=== PATIENT | female | born 1985 | race Caucasian/White ===

== ENCOUNTER 2016-06-29 15:04 | Emergency (ER) | payer OTHER ==
[~2016-06-29] VITALS: Ht 180.3 cm; Wt 152.4 kg
[2016-06-29 16:06] LABS: HEMATOCRIT 43.5 % (36.0-46.0); MCH 26.4 PG (29.0-34.0); MCHC 31.7 G/DL (30.0-36.0); MCV 83.3 FL (83-99); MEAN PLAT.VOLUME 9.7 uM^3 (9.5-12.4); PLATELET COUNT 447 K/uL (156-360); RBC DIS.WIDTH-CV 13.4 % (11.8-14.6); RBC DIS.WIDTH-SD 41.1 % (39-53); RED BLOOD COUNT 5.22 M/uL (3.80-5.20); WHITE BLOOD COUNT 15.4 K/uL (4.1-10.2)
[2016-06-29 16:19] LABS: CHLORIDE 103 mEq/L (99-109); POTASSIUM 4.2 mEq/L (3.7-5.4); SODIUM 140 mEq/L (136-147)
[2016-06-29 16:21] LABS: GLUCOSE 110 mg/dL (70-99)
[2016-06-29 16:22] LABS: ANION GAP 10 MEQ/L (2-14)
[2016-06-29 16:24] LABS: ALKALINE PHOSPHATASE 82 IU/L (3-129)
[2016-06-29 16:25] LABS: GFR ESTIMATE (CALCULATED) > 59 mL/min/
[2016-06-29 16:26] LABS: UREA NITROGEN (BUN) 10 mg/dL (9-23)
[2016-06-29 16:28] LABS: LIPASE 17 U/L (1.0-51.0)
[2016-06-29 16:28] LABS: ADD MIUA? YES; BILIRUBIN SMALL; BLOOD NEGATIVE; COLOR AMBER ((YELLOW)); GLUCOSE (STRIP) NEGATIVE; KETONES 5; LEUKOCYTES TRACE; NITRITE NEGATIVE; PROTEIN (STRIP) 100; SPECIFIC GRAVITY 1.028 (1.000-1.030)
[2016-06-29 16:35] LABS: QUANTITATIVE HCG < 4.0 MIU/ML
[2016-06-29 16:45] LABS: TOTAL BILIRUBIN 0.3 mg/dL (0.0-1.0)
[2016-06-29 16:47] LABS: BACTERIA 2+ /HPF; EPITHELIAL CELLS 4+ /HPF; MUCUS NONE SEEN /LPF; RED BLOOD CELLS 0-5 /HPF (0-5)
[2016-06-29] MEDS ORDERED: PERCOCET 5/31 TABLET PO (17:36)
[2016-06-29] MEDS ORDERED: ZOFRAN ODT4 MG PO (17:36)
[2016-06-29] MEDS ORDERED: CIPRO500 MG PO (17:37)
[2016-06-29 18:40] VITALS: BP 149/93
== END 2016-06-29 18:41 | disposition home or self-care (01) ==
LOC: EME 15:04
PROVIDERS: Nurse Practitioner Family
DX: N83.202 Unspecified ovarian cyst, left side (principal); N39.0 Urinary tract infection, site not specified; Z98.890 Other specified postprocedural states; Z85.830 Personal history of malignant neoplasm of bone
CPT/HCPCS: 74177; 80053; 81003; 83690; 84702; 85027; 99281; 99284; J2270; J2405; J7030

== ENCOUNTER 2016-07-31 06:47 | Day surgery (SDC) | payer OTHER ==
[~2016-07-31] VITALS: Ht 180.3 cm; Wt 150.0 kg
[~2016-07-31 06:47] MED LIST: BLISOVI FE 1.51 EACH PO; CIPRO500 MG PO; CYCLOBENZAPRINE5 MG PO; DILAUDID2 MG PO; ESCITALOPRAM OX10 MG PO; MELOXICAM7.5 MG PO; MIRALAX17 GM PO; PERCOCET 5/31 TABLET PO; TYLENOL REGULA325 MG PO; ZOFRAN ODT4 MG PO
== END 2016-07-31 09:20 | disposition home or self-care (01) ==
LOC: CATH 06:47
DX: I87.8 Other specified disorders of veins (principal); C76.42 Malignant neoplasm of left upper limb; Z82.49 Family history of ischemic heart disease and other diseases of the circulatory system
CPT/HCPCS: C1751; C1894; J0690; J1200; J1644; J2250; J3010; S0020

== ENCOUNTER → 2016-10-17 | Outpatient (CLI) | payer OTHER ==
[~2016-10-17] MED LIST changes: +FENTANYL1 EAC4 TD; +OXAYDO5 MG PO
== END | disposition home or self-care (01) ==
LOC: EKG 12:47
DX: C80.1 Malignant (primary) neoplasm, unspecified (principal)
CPT/HCPCS: 93306

== ENCOUNTER 2016-12-06 17:27 | Inpatient (IN) | payer OTHER ==
[~2016-12-06] VITALS: Ht 180.3 cm; Wt 143.5 kg
[2016-12-06 18:13] LABS: HEMATOCRIT 36.4 % (36.0-46.0); MCH 26.7 PG (29.0-34.0); MCHC 30.8 G/DL (30.0-36.0); MCV 86.9 FL (83-99); MEAN PLAT.VOLUME 9.1 uM^3 (9.5-12.4); NRBC (%) 0.2 /100 WBC (0-0); RBC DIS.WIDTH-CV 21.2 % (11.8-14.6); RBC DIS.WIDTH-SD 66.9 % (39-53); RED BLOOD COUNT 4.19 M/uL (3.80-5.20); WHITE BLOOD COUNT 8.9 K/uL (4.1-10.2)
[2016-12-06 18:15] LABS: EOSINOPHIL (%) 1.7 % (0-5); EOSINOPHIL COUNT 0.2 K/uL (0-0.3); IMMATURE GRANULOCYTE COUNT 0.1 K/uL; INSTRUMENT ABS NEUTROPHIL CT 7.3 K/uL; LYMPHOCYTE COUNT 0.6 K/uL (1.0-2.8); MONOCYTE (%) 8.4 % (3-12); MONOCYTE COUNT 0.8 K/uL (0-0.8); NEUTROPHIL (%) 82.6 % (45-76); NEUTROPHIL COUNT 7.3 K/uL (1.8-6.4)
[2016-12-06 18:32] LABS: CHLORIDE 105 mEq/L (99-109); POTASSIUM 3.8 mEq/L (3.7-5.4); SODIUM 141 mEq/L (136-147)
[2016-12-06 18:33] LABS: GLUCOSE 116 mg/dL (70-99)
[2016-12-06 18:35] LABS: ANION GAP 11 MEQ/L (2-14)
[2016-12-06 18:37] LABS: GFR ESTIMATE (CALCULATED) > 59 mL/min/
[2016-12-06 18:38] LABS: INTER. NORMALIZED RATIO 1.6; UREA NITROGEN (BUN) 6 mg/dL (9-23)
[2016-12-06 18:40] LABS: PTT 26.6 SEC (25-37)
[2016-12-06 18:46] LABS: PLATELET COUNT 86 K/uL (156-360)
[2016-12-06 18:55] LABS: ANISOCYTOSIS 2+; MACROCYTES 1+; MICROCYTOSIS 1+; PLAT.SUFFICIENCY DECREASED; POLYCHROMASIA 1+; SPHEROCYTES 1+
[2016-12-06] MEDS ORDERED: ESCITALOPRAM OX20 MG PO (20:25)
[2016-12-06] MEDS ORDERED: EXTRA STRENGTH500 M1 PO (20:29)
[2016-12-06] MEDS ORDERED: FENTANYL1 EAC1 TD (20:31)
[2016-12-06] MEDS ORDERED: CAPECITABINE500 MG PO (20:32)
[2016-12-06] MEDS ORDERED: NYSTOP60 GM TP (20:35)
[2016-12-06] MEDS ORDERED: LORAZEPAM0.5 MG PO (20:38)
[2016-12-06] MEDS ORDERED: XARELTO20 MG PO (20:39)
[2016-12-06] MEDS ORDERED: MIRALAX255 GM PO (20:41)
[2016-12-06] MEDS ORDERED: COMPAZINE10 MG PO (20:42)
[2016-12-06] MEDS ORDERED: ANTIFUNGAL15 G1 TP (20:45)
[2016-12-06] MEDS ORDERED: XGEVA120 MG/1.7 SC (20:49)
[2016-12-06 22:04] VITALS: BP 168/91
[2016-12-07 00:06] VITALS: BP 126/78
[2016-12-07 06:04] LABS: EOSINOPHIL (%) 1.8 % (0-5); EOSINOPHIL COUNT 0.2 K/uL (0-0.3); HEMATOCRIT 34.9 % (36.0-46.0); IMMATURE GRANULOCYTE (%) 1.3 % (0.0-0.7); IMMATURE GRANULOCYTE COUNT 0.1 K/uL; INSTRUMENT ABS NEUTROPHIL CT 7.5 K/uL; LYMPHOCYTE COUNT 0.6 K/uL (1.0-2.8); MCH 27.8 PG (29.0-34.0); MCHC 31.8 G/DL (30.0-36.0); MCV 87.3 FL (83-99); MEAN PLAT.VOLUME 10.4 uM^3 (9.5-12.4); MONOCYTE (%) 7.7 % (3-12); MONOCYTE COUNT 0.7 K/uL (0-0.8); NEUTROPHIL (%) 82.9 % (45-76); NEUTROPHIL COUNT 7.5 K/uL (1.8-6.4); PLATELET COUNT 90 K/uL (156-360); RBC DIS.WIDTH-CV 21.2 % (11.8-14.6); RBC DIS.WIDTH-SD 67.3 % (39-53); WHITE BLOOD COUNT 9.1 K/uL (4.1-10.2)
[2016-12-07 06:25] LABS: ANION GAP 8 MEQ/L (2-14); CHLORIDE 105 MEQ/L (99-109); GFR ESTIMATE (CALCULATED) > 59 mL/min/; GLUCOSE 112 mg/dL (70-99); POTASSIUM 3.8 MEQ/L (3.7-5.4); SAMPLE HEMOLYSIS CHECK 0; SAMPLE ICTERIC CHECK 0; SAMPLE LIPEMIA CHECK 0; SODIUM 140 MEQ/L (136-147); UREA NITROGEN (BUN) 5 mg/dL (9-23)
[2016-12-07 07:20] VITALS: BP 129/89
[2016-12-07 14:40] LABS: ADD MIUA? YES; BILIRUBIN NEGATIVE; BLOOD MODERATE; COLOR YELLOW ((YELLOW)); GLUCOSE (STRIP) NEGATIVE; KETONES NEGATIVE; LEUKOCYTES TRACE; NITRITE NEGATIVE; PROTEIN (STRIP) NEGATIVE; SPECIFIC GRAVITY 1.009 (1.000-1.030); UROBILINOGEN 0.2 MG/DL (0.2-1.0)
[2016-12-07 14:49] LABS: BACTERIA NONE SEEN /HPF; EPITHELIAL CELLS RARE /HPF; MUCUS TRACE /LPF; RED BLOOD CELLS 0-5 /HPF (0-5); UCUL ADDED? YES
[2016-12-07 15:29] VITALS: BP 135/90
[2016-12-07 21:20] LABS: POINT-OF-CARE METER ID UU14188625
[2016-12-07 23:28] VITALS: BP 125/80
[2016-12-08 07:46] VITALS: BP 124/83
[2016-12-08 12:20] LABS: HDL CHOLESTEROL 35 MG/DL (Desirable>=50); LDL CHOLESTEROL 161 mg/dL (Desirable<100); NON-HDL CHOLESTEROL 190 mg/dL (Desirable<160); TOTAL CHOLESTEROL 225 mg/dL (Desirable<200); TRIGLYCERIDES 146 MG/DL (Normal: <150)
[2016-12-08 16:35] VITALS: BP 122/80
[2016-12-08 20:54] LABS: POINT-OF-CARE METER ID UU13113717
[2016-12-08 23:32] VITALS: BP 144/83
[2016-12-09 00:08] LABS: PTT 26.3 SEC (25-37)
[2016-12-09 00:38] LABS: INTER. NORMALIZED RATIO 1.4; PROTHROMBIN TIME 15.1 SEC (10.2-12.9)
[2016-12-09 06:07] LABS: EOSINOPHIL (%) 0 % (0-5); HEMATOCRIT 34.9 % (36.0-46.0); IMMATURE GRANULOCYTE (%) 2.8 % (0.0-0.7); IMMATURE GRANULOCYTE COUNT 0.4 K/uL; INSTRUMENT ABS NEUTROPHIL CT 12.4 K/uL; LYMPHOCYTE COUNT 0.6 K/uL (1.0-2.8); MCH 27.2 PG (29.0-34.0); MCHC 31.5 G/DL (30.0-36.0); MCV 86.4 FL (83-99); MONOCYTE (%) 3.9 % (3-12); MONOCYTE COUNT 0.5 K/uL (0-0.8); NEUTROPHIL (%) 88.6 % (45-76); NEUTROPHIL COUNT 12.4 K/uL (1.8-6.4); PLATELET COUNT 103 K/uL (156-360); RBC DIS.WIDTH-CV 20.9 % (11.8-14.6); RBC DIS.WIDTH-SD 65.4 % (39-53); RED BLOOD COUNT 4.04 M/uL (3.80-5.20)
[2016-12-09 06:51] LABS: POINT-OF-CARE METER ID UU14174225
[2016-12-09 07:14] VITALS: BP 137/95
[2016-12-09 11:19] LABS: POINT-OF-CARE METER ID UU14174225
[2016-12-09 14:27] LABS: Estimated Average Glucose 91 mg/dL (70-123); HEMOGLOBIN A1c (GLYCOHEMOGLOB) 4.8 % HGB (Below 5.7)
[2016-12-09 15:11] VITALS: BP 152/83
[2016-12-09 16:46] LABS: POINT-OF-CARE METER ID UU13113717
[2016-12-09 19:42] VITALS: BP 173/83
[2016-12-09 21:25] LABS: POINT-OF-CARE METER ID UU13113717
[2016-12-10 00:10] VITALS: BP 144/87
[2016-12-10 03:47] VITALS: BP 181/92
[2016-12-10 06:25] LABS: INTER. NORMALIZED RATIO 1.2; PROTHROMBIN TIME 13.7 SEC (10.2-12.9)
[2016-12-10 07:12] VITALS: BP 126/78
[2016-12-10 07:12] LABS: POINT-OF-CARE METER ID UU14188625
[2016-12-10 11:19] LABS: POINT-OF-CARE METER ID UU14174225
[2016-12-10] MEDS ORDERED: CAPECITABINE500 MG PO (11:34)
[2016-12-10] MEDS ORDERED: LOVENOX150 MG/1 M SC (11:38)
[2016-12-10] MEDS ORDERED: PRAVASTATIN SOD80 MG PO (11:38)
[2016-12-10] MEDS ORDERED: DECADRON4 MG PO (11:40)
[2016-12-11 05:01] LABS: DRVVT Mixing Study Interp Not Indicated (()); dRVVT Screen 45 sec (<=45)
[2016-12-11 05:32] LABS: ADD PTT REFLEX? Y; PTT-LA 50 sec (<=40); PTT-LA Reflex Has been added (())
== END 2016-12-10 13:58 | disposition home or self-care (01) | DRG 65 ==
LOC: EME 17:27 → 5SOUTH 19:37 → EDOF 19:37 → ENRESERV 19:40 → 5SOUTH 21:46
PROVIDERS: Emergency Medicine; Family Medicine; Hospitalist; Internal Medicine; Internal Medicine Medical Oncology
DX: I63.443 Cerebral infarction due to embolism of bilateral cerebellar arteries (principal); C79.31 Secondary malignant neoplasm of brain; C79.51 Secondary malignant neoplasm of bone; C78.7 Secondary malignant neoplasm of liver and intrahepatic bile duct; C78.01 Secondary malignant neoplasm of right lung; C78.1 Secondary malignant neoplasm of mediastinum; F05 Delirium due to known physiological condition; Z68.41 Body mass index [BMI] 40.0-44.9, adult; M84.40XA Pathological fracture, unspecified site, initial encounter for fracture; C80.1 Malignant (primary) neoplasm, unspecified; R47.01 Aphasia; D69.59 Other secondary thrombocytopenia; T45.1X5A Adverse effect of antineoplastic and immunosuppressive drugs, initial encounter; D64.81 Anemia due to antineoplastic chemotherapy; K59.00 Constipation, unspecified; G13.1 Other systemic atrophy primarily affecting central nervous system in neoplastic disease; E66.3 Overweight; E78.5 Hyperlipidemia, unspecified; G89.3 Neoplasm related pain (acute) (chronic); Z86.718 Personal history of other venous thrombosis and embolism; Z92.3 Personal history of irradiation; Z79.01 Long term (current) use of anticoagulants; Z80.0 Family history of malignant neoplasm of digestive organs; Z80.7 Family history of other malignant neoplasms of lymphoid, hematopoietic and related tissues
CPT/HCPCS: 70450; 70553; 77336; 77412; 80048; 80061; 81003; 82948; 83036; 85025; 85597 90; 85610; 85613 90; 85730; 85730 90; 86147 90; 87040; 87086; 93005; 93306; 93880; 99281; 99285; G0480; J1100; J1650; J8521

== ENCOUNTER 2016-12-26 13:57 | Inpatient (IN) | payer OTHER ==
[~2016-12-26] VITALS: Ht 180.3 cm; Wt 135.9 kg
[~2016-12-26 13:57] MED LIST changes: +ANTIFUNGAL15 G1 TP; +ATIVAN1 MG PO; +CAPECITABINE500 MG PO; +COMPAZINE10 MG PO; +DECADRON4 MG PO; +ESCITALOPRAM OX20 MG PO; +EXTRA STRENGTH500 M1 PO; +FENTANYL1 EAC1 TD; +LOVENOX150 MG/1 M SC; +MIRALAX255 GM PO; +NYSTOP60 GM TP; -OXAYDO5 MG PO; +OXYCODONE HCL10 MG PO; +PRAVASTATIN SOD80 MG PO; +XARELTO20 MG PO; +XGEVA120 MG/1.7 SC
[2016-12-26 15:10] LABS: EOSINOPHIL (%) 0.3 % (0-5); EOSINOPHIL COUNT 0.1 K/uL (0-0.3); HEMATOCRIT 31.7 % (36.0-46.0); IMMATURE GRANULOCYTE (%) 4.6 % (0.0-0.7); IMMATURE GRANULOCYTE COUNT 1.1 K/uL; INSTRUMENT ABS NEUTROPHIL CT 21.1 K/uL; LYMPHOCYTE COUNT 0.7 K/uL (1.0-2.8); MCH 28.6 PG (29.0-34.0); MCHC 33.4 G/DL (30.0-36.0); MCV 85.4 FL (83-99); MONOCYTE (%) 5.3 % (3-12); MONOCYTE COUNT 1.3 K/uL (0-0.8); NEUTROPHIL COUNT 21.1 K/uL (1.8-6.4); NRBC (%) 0.2 /100 WBC (0-0); RBC DIS.WIDTH-CV 21.3 % (11.8-14.6); RED BLOOD COUNT 3.71 M/uL (3.80-5.20); WHITE BLOOD COUNT 24.3 K/uL (4.1-10.2)
[2016-12-26 15:12] LABS: PLATELET COUNT 162 K/uL (156-360)
[2016-12-26 15:23] LABS: CHLORIDE 101 mEq/L (99-109); POTASSIUM 4.6 mEq/L (3.7-5.4); SODIUM 134 mEq/L (136-147)
[2016-12-26 15:26] LABS: GLUCOSE 119 mg/dL (70-99)
[2016-12-26 15:27] LABS: ANION GAP 14 MEQ/L (2-14); TOTAL BILIRUBIN 0.7 mg/dL (0.0-1.0)
[2016-12-26 15:29] LABS: ALKALINE PHOSPHATASE 142 IU/L (3-129); GFR ESTIMATE (CALCULATED) > 59 mL/min/
[2016-12-26 15:30] LABS: UREA NITROGEN (BUN) 17 mg/dL (9-23)
[2016-12-26] MEDS ORDERED: XELODA500 MG PO (20:03)
[2016-12-26] MEDS ORDERED: DECADRON4 MG PO (20:05)
[2016-12-26] MEDS ORDERED: ZOFRAN8 MG PO (20:06)
[2016-12-27 01:23] VITALS: BP 116/76
[2016-12-27 06:20] LABS: HEMATOCRIT 28.1 % (36.0-46.0); MCH 28.2 PG (29.0-34.0); MCHC 32.4 G/DL (30.0-36.0); MEAN PLAT.VOLUME 9.6 uM^3 (9.5-12.4); NRBC (%) 0.4 /100 WBC (0-0); PLATELET COUNT 150 K/uL (156-360); RBC DIS.WIDTH-CV 21.7 % (11.8-14.6); RBC DIS.WIDTH-SD 68.5 % (39-53); RED BLOOD COUNT 3.23 M/uL (3.80-5.20); WHITE BLOOD COUNT 20.3 K/uL (4.1-10.2)
[2016-12-27 06:40] LABS: ANION GAP 11 MEQ/L (2-14); CHLORIDE 100 MEQ/L (99-109); GFR ESTIMATE (CALCULATED) > 59 mL/min/; SAMPLE HEMOLYSIS CHECK 0; SAMPLE ICTERIC CHECK 0; SAMPLE LIPEMIA CHECK 0; SODIUM 136 MEQ/L (136-147); UREA NITROGEN (BUN) 13 mg/dL (9-23)
[2016-12-27 06:43] LABS: GLUCOSE 190 mg/dL (70-99); POTASSIUM 3.5 MEQ/L (3.7-5.4)
[2016-12-27 07:20] VITALS: BP 127/78
[2016-12-27 11:50] VITALS: BP 125/74
[2016-12-27 14:55] VITALS: BP 133/73
[2016-12-27 17:39] LABS: ADD MIUA? YES; BILIRUBIN NEGATIVE; BLOOD NEGATIVE; COLOR YELLOW ((YELLOW)); GLUCOSE (STRIP) 50; KETONES NEGATIVE; LEUKOCYTES SMALL; NITRITE NEGATIVE; PROTEIN (STRIP) NEGATIVE; SPECIFIC GRAVITY 1.028 (1.000-1.030)
[2016-12-27 18:33] LABS: BACTERIA NONE SEEN /HPF; EPITHELIAL CELLS RARE /HPF; HYALINE CASTS 0-5 /LPF; MUCUS 1+ /LPF; RED BLOOD CELLS 0-5 /HPF (0-5); UCUL ADDED? YES
[2016-12-27 18:51] VITALS: BP 115/69
[2016-12-27 23:20] VITALS: BP 112/56
[2016-12-28] VITALS (8 sets, daily range): BP systolic 121–138; BP diastolic 65–84
[2016-12-28 06:55] LABS: ALKALINE PHOSPHATASE 105 IU/L (3-129); ANION GAP 9 MEQ/L (2-14); CHLORIDE 106 MEQ/L (99-109); GFR ESTIMATE (CALCULATED) > 59 mL/min/; POTASSIUM 3.9 MEQ/L (3.7-5.4); SAMPLE HEMOLYSIS CHECK 0; SAMPLE ICTERIC CHECK 0; SAMPLE LIPEMIA CHECK 0; SODIUM 140 MEQ/L (136-147); TOTAL BILIRUBIN 0.5 MG/DL (0.0-1.0); UREA NITROGEN (BUN) 14 mg/dL (9-23)
[2016-12-28 06:56] LABS: GLUCOSE 114 mg/dL (70-99)
[2016-12-28 07:26] LABS: HEMATOCRIT 21.5 % (36.0-46.0); MCHC 32.6 G/DL (30.0-36.0); MCV 89.2 FL (83-99); MEAN PLAT.VOLUME 10.3 uM^3 (9.5-12.4); NRBC (%) 1.3 /100 WBC (0-0); PLATELET COUNT 113 K/uL (156-360); RBC DIS.WIDTH-CV 22.1 % (11.8-14.6); RBC DIS.WIDTH-SD 71.3 % (39-53); WHITE BLOOD COUNT 16.5 K/uL (4.1-10.2)
[2016-12-28 07:28] LABS: RED BLOOD COUNT 2.41 M/uL (3.80-5.20)
[2016-12-28 08:01] LABS: ANISOCYTOSIS 2+; BAND NEUTROPHILS 4.5 % (0-8.0); EOSINOPHIL ABS CT 0.1; EOSINOPHILS 0.9 % (0-5.0); HYPOCHROMASIA 1+; INSTRUMENT ABS NEUTROPHIL CT 13.9 K/uL; LYMPHOCYTES 1.8 % (15.0-45.0); MICROCYTOSIS 2+; NUCLEATED RBC'S 0.9; PLAT.SUFFICIENCY DECREASED; POLYCHROMASIA 2+; SEG.NEUTROPHILS 86.6 % (46.0-76.0); STOMATOCYTES 2+; TEAR DROP CELLS 1+
[2016-12-29 04:00] VITALS: BP 139/81
[2016-12-29 06:14] LABS: HEMATOCRIT 22.9 % (36.0-46.0); MCHC 31.9 G/DL (30.0-36.0); MCV 90.9 FL (83-99); MEAN PLAT.VOLUME 9.8 uM^3 (9.5-12.4); NRBC (%) 2.1 /100 WBC (0-0); PLATELET COUNT 109 K/uL (156-360); RBC DIS.WIDTH-CV 20.5 % (11.8-14.6); RBC DIS.WIDTH-SD 67.9 % (39-53); RED BLOOD COUNT 2.52 M/uL (3.80-5.20); WHITE BLOOD COUNT 14.7 K/uL (4.1-10.2)
[2016-12-29 06:46] LABS: ABS NEUTROPHIL COUNT 13.8; ANISOCYTOSIS 2+; BAND NEUTROPHILS 1.8 % (0-8.0); EOSINOPHIL ABS CT 0; HYPOCHROMASIA 1+; LYMPHOCYTES 0.9 % (15.0-45.0); MACROCYTES 1+; METAMYELOCYTES 0.9 %; MICROCYTOSIS 1+; MYELOCYTES 0.9 %; NUCLEATED RBC'S 0.9; PLAT.SUFFICIENCY DECREASED; POLYCHROMASIA 2+; SMUDGE CELLS 0.9
[2016-12-29 06:54] LABS: ALKALINE PHOSPHATASE 108 IU/L (3-129); ANION GAP 7 MEQ/L (2-14); CHLORIDE 105 MEQ/L (99-109); GFR ESTIMATE (CALCULATED) > 59 mL/min/; GLUCOSE 89 mg/dL (70-99); SAMPLE HEMOLYSIS CHECK 0; SAMPLE ICTERIC CHECK 0; SAMPLE LIPEMIA CHECK 0; SODIUM 139 MEQ/L (136-147); UREA NITROGEN (BUN) 14 mg/dL (9-23)
[2016-12-29 06:55] LABS: TOTAL BILIRUBIN 0.7 MG/DL (0.0-1.0)
[2016-12-29 08:04] VITALS: BP 107/62
[2016-12-29 17:07] VITALS: BP 108/66
[2016-12-29 19:59] VITALS: BP 131/66
[2016-12-29 21:45] LABS: POINT-OF-CARE METER ID UU13113774
[2016-12-29 23:43] VITALS: BP 134/79
[2016-12-30] VITALS (13 sets, daily range): BP systolic 120–143; BP diastolic 63–91
[2016-12-30 05:43] LABS: HEMATOCRIT 21.4 % (36.0-46.0); MCH 29.3 PG (29.0-34.0); MCHC 31.8 G/DL (30.0-36.0); MCV 92.2 FL (83-99); NRBC (%) 3.2 /100 WBC (0-0); PLATELET COUNT 101 K/uL (156-360); RBC DIS.WIDTH-SD 68.6 % (39-53); RED BLOOD COUNT 2.32 M/uL (3.80-5.20); WHITE BLOOD COUNT 9.7 K/uL (4.1-10.2)
[2016-12-30 06:16] LABS: ABS NEUTROPHIL COUNT 8.6; ANISOCYTOSIS 1+; BAND NEUTROPHILS 3.5 % (0-8.0); EOSINOPHIL ABS CT 0.3; EOSINOPHILS 2.6 % (0-5.0); HEMATOLOGY COMMENT 1 SN; HYPOCHROMASIA 2+; INSTRUMENT ABS NEUTROPHIL CT 7.6 K/uL; LYMPHOCYTES 4.4 % (15.0-45.0); MYELOCYTES 3.5 %; NUCLEATED RBC'S 2.6; PLAT.SUFFICIENCY DECREASED; POLYCHROMASIA 1+; SEG.NEUTROPHILS 85.1 % (46.0-76.0); STOMATOCYTES 1+
[2016-12-30 06:23] LABS: ANION GAP 6 MEQ/L (2-14); CHLORIDE 106 MEQ/L (99-109); GFR ESTIMATE (CALCULATED) > 59 mL/min/; GLUCOSE 85 mg/dL (70-99); POTASSIUM 3.9 MEQ/L (3.7-5.4); SAMPLE HEMOLYSIS CHECK 0; SAMPLE ICTERIC CHECK 0; SAMPLE LIPEMIA CHECK 0; SODIUM 139 MEQ/L (136-147); UREA NITROGEN (BUN) 14 mg/dL (9-23)
[2016-12-30 20:55] LABS: HEMATOCRIT 29.8 % (36.0-46.0); MCV 89.2 FL (83-99)
[2016-12-31 06:10] LABS: HEMATOCRIT 28.3 % (36.0-46.0); MCH 28.6 PG (29.0-34.0); MCHC 32.2 G/DL (30.0-36.0); MEAN PLAT.VOLUME 9.8 uM^3 (9.5-12.4); NRBC (%) 3.8 /100 WBC (0-0); PLATELET COUNT 82 K/uL (156-360); RBC DIS.WIDTH-CV 19.6 % (11.8-14.6); RBC DIS.WIDTH-SD 60.9 % (39-53); RED BLOOD COUNT 3.18 M/uL (3.80-5.20); WHITE BLOOD COUNT 8.8 K/uL (4.1-10.2)
[2016-12-31 06:36] LABS: ANION GAP 7 MEQ/L (2-14); CHLORIDE 107 MEQ/L (99-109); GFR ESTIMATE (CALCULATED) > 59 mL/min/; GLUCOSE 90 mg/dL (70-99); SAMPLE HEMOLYSIS CHECK 0; SAMPLE ICTERIC CHECK 0; SAMPLE LIPEMIA CHECK 0; SODIUM 141 MEQ/L (136-147); UREA NITROGEN (BUN) 14 mg/dL (9-23)
[2016-12-31 06:42] LABS: ABS NEUTROPHIL COUNT 7.4; ANISOCYTOSIS 1+; BAND NEUTROPHILS 3.6 % (0-8.0); EOSINOPHIL ABS CT 0.1; EOSINOPHILS 0.9 % (0-5.0); INSTRUMENT ABS NEUTROPHIL CT 6.9 K/uL; LYMPHOCYTES 10.8 % (15.0-45.0); MICROCYTOSIS 1+; NUCLEATED RBC'S 4.5; PLAT.SUFFICIENCY DECREASED; POLYCHROMASIA 1+; SEG.NEUTROPHILS 80.2 % (46.0-76.0)
[2016-12-31 08:04] VITALS: BP 134/93
[2016-12-31 16:00] VITALS: BP 135/88
[2016-12-31 23:56] VITALS: BP 131/86
[2017-01-01 05:48] LABS: HEMATOCRIT 30.8 % (36.0-46.0); MCH 29.5 PG (29.0-34.0); MCHC 32.5 G/DL (30.0-36.0); MCV 90.9 FL (83-99); MEAN PLAT.VOLUME 9.6 uM^3 (9.5-12.4); NRBC (%) 4.3 /100 WBC (0-0); PLATELET COUNT 64 K/uL (156-360); RBC DIS.WIDTH-CV 20.3 % (11.8-14.6); RBC DIS.WIDTH-SD 62.9 % (39-53); RED BLOOD COUNT 3.39 M/uL (3.80-5.20); WHITE BLOOD COUNT 7.9 K/uL (4.1-10.2)
[2017-01-01 06:30] LABS: ABS NEUTROPHIL COUNT 6.3; ANISOCYTOSIS 1+; BAND NEUTROPHILS 3.5 % (0-8.0); EOSINOPHIL ABS CT 0.1; EOSINOPHILS 0.9 % (0-5.0); GIANT PLATELETS 1+; INSTRUMENT ABS NEUTROPHIL CT 6.1 K/uL; MICROCYTOSIS 1+; MYELOCYTES 3.5 %; PLAT.SUFFICIENCY DECREASED; POLYCHROMASIA 1+; SEG.NEUTROPHILS 76.3 % (46.0-76.0)
[2017-01-01 07:37] VITALS: BP 138/93
[2017-01-01 16:59] VITALS: BP 136/88
[2017-01-01 23:18] VITALS: BP 142/98
[2017-01-02 08:30] VITALS: BP 137/90
[2017-01-02 08:41] LABS: EOSINOPHIL (%) 2.7 % (0-5); EOSINOPHIL COUNT 0.2 K/uL (0-0.3); HEMATOCRIT 31.4 % (36.0-46.0); IMMATURE GRANULOCYTE (%) 4.2 % (0.0-0.7); IMMATURE GRANULOCYTE COUNT 0.3 K/uL; INSTRUMENT ABS NEUTROPHIL CT 5.8 K/uL; LYMPHOCYTE COUNT 0.6 K/uL (1.0-2.8); MCH 29.7 PG (29.0-34.0); MCHC 32.5 G/DL (30.0-36.0); MCV 91.3 FL (83-99); MONOCYTE (%) 6.7 % (3-12); MONOCYTE COUNT 0.5 K/uL (0-0.8); NEUTROPHIL COUNT 5.8 K/uL (1.8-6.4); NRBC (%) 2.3 /100 WBC (0-0); RBC DIS.WIDTH-CV 20.4 % (11.8-14.6); RED BLOOD COUNT 3.44 M/uL (3.80-5.20); WHITE BLOOD COUNT 7.4 K/uL (4.1-10.2)
[2017-01-02 09:19] LABS: IMM.PLATELET FRACTION 6.2 (1-7); MEAN PLAT.VOLUME 10.7 uM^3 (9.5-12.4)
[2017-01-02 10:33] LABS: PLATELET COUNT 37 K/uL (156-360)
[2017-01-02 10:36] LABS: PLAT.SUFFICIENCY VERY DECREASED
[2017-01-02 23:06] VITALS: BP 132/88
[2017-01-03 03:41] VITALS: BP 124/86
[2017-01-03 08:02] VITALS: BP 135/89
[2017-01-03 11:50] VITALS: BP 133/92
[2017-01-03 13:41] LABS: HEMATOCRIT 32.2 % (36.0-46.0); MCH 30.2 PG (29.0-34.0); MCHC 32.9 G/DL (30.0-36.0); MCV 91.7 FL (83-99); RBC DIS.WIDTH-CV 20.4 % (11.8-14.6); RBC DIS.WIDTH-SD 63.7 % (39-53); RED BLOOD COUNT 3.51 M/uL (3.80-5.20)
[2017-01-03 13:53] LABS: PLATELET COUNT 56 K/uL (156-360)
[2017-01-03 14:03] LABS: ANION GAP 11 MEQ/L (2-14); CHLORIDE 102 MEQ/L (99-109); SAMPLE HEMOLYSIS CHECK 0; SAMPLE ICTERIC CHECK 0; SAMPLE LIPEMIA CHECK 0; SODIUM 135 MEQ/L (136-147)
[2017-01-03 14:09] LABS: GFR ESTIMATE (CALCULATED) > 59 mL/min/; GLUCOSE 105 mg/dL (70-99); UREA NITROGEN (BUN) 15 mg/dL (9-23)
[2017-01-03 15:56] VITALS: BP 139/82
[2017-01-03 19:57] VITALS: BP 131/87
[2017-01-04 00:43] VITALS: BP 126/72
[2017-01-04 08:11] VITALS: BP 129/67
[2017-01-04 09:39] LABS: MCHC 32.4 G/DL (30.0-36.0); MCV 92.7 FL (83-99); MEAN PLAT.VOLUME 10.4 uM^3 (9.5-12.4); NRBC (%) 0.5 /100 WBC (0-0); PLATELET COUNT 62 K/uL (156-360); RBC DIS.WIDTH-CV 20.2 % (11.8-14.6); RBC DIS.WIDTH-SD 65.4 % (39-53); RED BLOOD COUNT 3.13 M/uL (3.80-5.20); WHITE BLOOD COUNT 5.7 K/uL (4.1-10.2)
[2017-01-04 10:29] LABS: ANION GAP 10 MEQ/L (2-14); CHLORIDE 107 MEQ/L (99-109); GFR ESTIMATE (CALCULATED) > 59 mL/min/; GLUCOSE 99 mg/dL (70-99); MAGNESIUM 2.3 mg/dl (1.3-2.7); POTASSIUM 4.1 MEQ/L (3.7-5.4); SAMPLE HEMOLYSIS CHECK 0; SAMPLE ICTERIC CHECK 0; SAMPLE LIPEMIA CHECK 0; SODIUM 139 MEQ/L (136-147); UREA NITROGEN (BUN) 16 mg/dL (9-23)
[2017-01-04 16:00] VITALS: BP 132/79
[2017-01-04 20:14] VITALS: BP 131/77
[2017-01-05 07:45] VITALS: BP 163/87
[2017-01-05 07:52] LABS: HEMATOCRIT 28.3 % (36.0-46.0); MCH 30.1 PG (29.0-34.0); MCHC 32.5 G/DL (30.0-36.0); MCV 92.5 FL (83-99); MEAN PLAT.VOLUME 10.5 uM^3 (9.5-12.4); NRBC (%) 0.6 /100 WBC (0-0); PLATELET COUNT 75 K/uL (156-360); RBC DIS.WIDTH-CV 19.5 % (11.8-14.6); RBC DIS.WIDTH-SD 64.5 % (39-53); RED BLOOD COUNT 3.06 M/uL (3.80-5.20); WHITE BLOOD COUNT 4.9 K/uL (4.1-10.2)
[2017-01-05 08:20] LABS: CHLORIDE 103 MEQ/L (99-109); POTASSIUM 3.7 MEQ/L (3.7-5.4); SODIUM 136 MEQ/L (136-147)
[2017-01-05 08:21] LABS: ANION GAP 9 MEQ/L (2-14); MAGNESIUM 2.1 mg/dl (1.3-2.7); SAMPLE HEMOLYSIS CHECK 0; SAMPLE ICTERIC CHECK 0; SAMPLE LIPEMIA CHECK 0
[2017-01-05 08:26] LABS: GFR ESTIMATE (CALCULATED) > 59 mL/min/; GLUCOSE 87 mg/dL (70-99); UREA NITROGEN (BUN) 13 mg/dL (9-23)
[2017-01-05] MEDS ORDERED: FAMOTIDINE20 MG PO (11:44)
[2017-01-05] MEDS ORDERED: DILAUDID1 MG/ML IV (11:44)
[2017-01-05] MEDS ORDERED: Salonpas 4% Patch TD (11:44)
[2017-01-05] MEDS ORDERED: ZOLPIDEM TARTRAT5 MG PO (11:44)
[2017-01-05] MEDS ORDERED: BISACODYL5 MG PO (11:44)
[2017-01-05] MEDS ORDERED: Chronulac,Cephulac,E PO (11:44)
[2017-01-05] MEDS ORDERED: SENNA PLUS TAB1 EACH PO (11:44)
[2017-01-05] MEDS ORDERED: FENTANYL1 EAC2 TD (11:44)
[2017-01-05] MEDS ORDERED: DUONEB 2.5-0.5 M3 ML AEROSOL (11:44)
[2017-01-05] MEDS ORDERED: DILAUDID2 MG PO (13:29)
== END 2017-01-05 15:15 | DRG 555 ==
LOC: EME 13:57 → 5EAST 20:13 → EDOF 20:13 → ENRESERV 20:17 → 5EAST 12-27 00:57
PROVIDERS: Emergency Medicine; Hospitalist; Internal Medicine; Internal Medicine Hematology & Oncology; Student in an Organized Health Care Education/Training Program
PROC: 30233N1 Transfusion of Nonautologous Red Blood Cells into Peripheral Vein, Percutaneous Approach (ICD-10-PCS; principal; 2016-12-28)
PROC: 3E03305 Introduction of Other Antineoplastic into Peripheral Vein, Percutaneous Approach (ICD-10-PCS; 2017-01-02)
DX: M79.81 Nontraumatic hematoma of soft tissue (principal); T45.515A Adverse effect of anticoagulants, initial encounter; C79.51 Secondary malignant neoplasm of bone; M84.48XA Pathological fracture, other site, initial encounter for fracture; G95.29 Other cord compression; G89.3 Neoplasm related pain (acute) (chronic); C79.31 Secondary malignant neoplasm of brain; C80.1 Malignant (primary) neoplasm, unspecified; D69.59 Other secondary thrombocytopenia; I26.99 Other pulmonary embolism without acute cor pulmonale; D62 Acute posthemorrhagic anemia; E78.5 Hyperlipidemia, unspecified; K59.03 Drug induced constipation; T40.605A Adverse effect of unspecified narcotics, initial encounter; E66.9 Obesity, unspecified; Z85.118 Personal history of other malignant neoplasm of bronchus and lung; Z86.718 Personal history of other venous thrombosis and embolism; Z86.73 Personal history of transient ischemic attack (TIA), and cerebral infarction without residual deficits; Z79.01 Long term (current) use of anticoagulants; Z68.41 Body mass index [BMI] 40.0-44.9, adult
CPT/HCPCS: 71275; 72100; 72157; 72158; 73502; 74177; 80048; 80053; 81003; 82272; 82948; 83735; 85014; 85018; 85025; 85027; 85730; 86850; 86900; 86901; 86920; 87040; 87086; 93005; 94010; 94799; 97530 GP; 99202; 99281; 99285; J1100; J1170; J1650; J1885; J2060; J2270; J2405; J2469; J2543; J2765; J3370; J3480; J7050; J8540; J9000; P9016; Q0164

== ENCOUNTER 2017-01-08 19:29 | Inpatient (IN) | payer OTHER ==
[~2017-01-08] VITALS: Ht 180.3 cm; Wt 126.5 kg
[~2017-01-08 19:29] MED LIST changes: +BISACODYL5 MG PO; +Chronulac,Cephulac,E PO; +DILAUDID1 MG/ML IV; +DUONEB 2.5-0.5 M3 ML AEROSOL; +FAMOTIDINE20 MG PO; +FENTANYL1 EAC2 TD; +SENNA PLUS TAB1 EACH PO; +Salonpas 4% Patch TD; +XELODA500 MG PO; +ZOFRAN8 MG PO; +ZOLPIDEM TARTRAT5 MG PO
[2017-01-08 20:33] LABS: HEMATOCRIT 29.4 % (36.0-46.0); MCH 30.3 PG (29.0-34.0); MCHC 33.7 G/DL (30.0-36.0); MCV 89.9 FL (83-99); NRBC (%) 0.5 /100 WBC (0-0); RED BLOOD COUNT 3.27 M/uL (3.80-5.20); WHITE BLOOD COUNT 3.9 K/uL (4.1-10.2)
[2017-01-08 20:39] LABS: INTER. NORMALIZED RATIO 1.3; PROTHROMBIN TIME 15.1 SEC (10.2-12.9)
[2017-01-08 20:41] LABS: CHLORIDE 105 mEq/L (99-109); POTASSIUM 3.9 mEq/L (3.7-5.4); SODIUM 138 mEq/L (136-147)
[2017-01-08 20:45] LABS: ANION GAP 11 MEQ/L (2-14)
[2017-01-08 20:46] LABS: TOTAL BILIRUBIN 1.2 mg/dL (0.0-1.0)
[2017-01-08 20:47] LABS: ALKALINE PHOSPHATASE 110 IU/L (3-129); GFR ESTIMATE (CALCULATED) > 59 mL/min/; GLUCOSE 113 mg/dL (70-99)
[2017-01-08 20:48] LABS: UREA NITROGEN (BUN) 18 mg/dL (9-23)
[2017-01-08 21:10] LABS: EOSINOPHIL (%) 0.5 % (0-5); IMM.PLATELET FRACTION 4.2 (1-7); IMMATURE GRANULOCYTE (%) 2.3 % (0.0-0.7); IMMATURE GRANULOCYTE COUNT 0.1 K/uL; INSTRUMENT ABS NEUTROPHIL CT 3.4 K/uL; LYMPHOCYTE COUNT 0.3 K/uL (1.0-2.8); MONOCYTE (%) 0.5 % (3-12); NEUTROPHIL (%) 88.4 % (45-76); NEUTROPHIL COUNT 3.4 K/uL (1.8-6.4); PLAT.SUFFICIENCY DECREASED
[2017-01-08 21:12] LABS: PLATELET COUNT 40 K/uL (156-360)
[2017-01-08 21:32] LABS: PTT 30.4 SEC (25-37)
[2017-01-08] MEDS ORDERED: LACTULOSE10 GM/151 PO (21:47)
[2017-01-08] MEDS ORDERED: ENOXAPARIN150 MG/1 M SC (22:45)
[2017-01-09] VITALS (7 sets, daily range): BP systolic 129–161; BP diastolic 76–109
[2017-01-09 00:48] LABS: HDL CHOLESTEROL 37 MG/DL (Desirable>=50); LDL CHOLESTEROL 131 mg/dL (Desirable<100); NON-HDL CHOLESTEROL 190 mg/dL (Desirable<160); TOTAL CHOLESTEROL 227 mg/dL (Desirable<200); TRIGLYCERIDES 297 MG/DL (Normal: <150)
[2017-01-09 06:40] LABS: Estimated Average Glucose 97 mg/dL (70-123)
[2017-01-09] MEDS ORDERED: DULCOLAX5 MG PO (11:37)
[2017-01-09] MEDS ORDERED: PEPCID20 MG PO (11:38)
[2017-01-09] MEDS ORDERED: LIDOCARE1 EACH TP (11:39)
[2017-01-09] MEDS ORDERED: NYSTOP60 GM TP (11:40)
[2017-01-09] MEDS ORDERED: CLOTRIMAZOLE15 GM TP (11:42)
[2017-01-09 12:53] LABS: HEMATOCRIT 26.4 % (36.0-46.0); MCH 30.8 PG (29.0-34.0); MCHC 33.7 G/DL (30.0-36.0); MCV 91.3 FL (83-99); NRBC (%) 0.8 /100 WBC (0-0); RBC DIS.WIDTH-CV 18.2 % (11.8-14.6); RBC DIS.WIDTH-SD 60.5 % (39-53); RED BLOOD COUNT 2.89 M/uL (3.80-5.20); WHITE BLOOD COUNT 2.5 K/uL (4.1-10.2)
[2017-01-09 13:20] LABS: EOSINOPHIL (%) 2.4 % (0-5); EOSINOPHIL COUNT 0.1 K/uL (0-0.3); IMM.PLATELET FRACTION 6.3 (1-7); IMMATURE GRANULOCYTE (%) 1.6 % (0.0-0.7); LYMPHOCYTE COUNT 0.3 K/uL (1.0-2.8); MEAN PLAT.VOLUME 10.8 uM^3 (9.5-12.4); MONOCYTE (%) 1.6 % (3-12); NEUTROPHIL (%) 81.3 % (45-76); PLAT.SUFFICIENCY VERY DECREASED; PLATELET COUNT 39 K/uL (156-360)
[2017-01-09 13:21] LABS: ANION GAP 10 MEQ/L (2-14); CHLORIDE 105 MEQ/L (99-109); GFR ESTIMATE (CALCULATED) > 59 mL/min/; GLUCOSE 104 mg/dL (70-99); POTASSIUM 3.6 MEQ/L (3.7-5.4); SAMPLE HEMOLYSIS CHECK 0; SAMPLE ICTERIC CHECK 0; SAMPLE LIPEMIA CHECK 0; SODIUM 139 MEQ/L (136-147); UREA NITROGEN (BUN) 16 mg/dL (9-23)
[2017-01-10 04:00] VITALS: BP 140/99
[2017-01-10 07:11] VITALS: BP 128/69
[2017-01-10 11:21] VITALS: BP 124/81
[2017-01-10 15:02] LABS: HEMATOCRIT 24.6 % (36.0-46.0); MCH 30.4 PG (29.0-34.0); MCHC 33.3 G/DL (30.0-36.0); MCV 91.1 FL (83-99); NRBC (%) 12.6 /100 WBC (0-0); RBC DIS.WIDTH-CV 18.5 % (11.8-14.6); RBC DIS.WIDTH-SD 60.1 % (39-53)
[2017-01-10 15:04] LABS: WHITE BLOOD COUNT 1.3 K/uL (4.1-10.2)
[2017-01-10 15:15] VITALS: BP 132/60
[2017-01-10 15:33] LABS: IMM.PLATELET FRACTION 7.1 (1-7); MEAN PLAT.VOLUME 12.3 uM^3 (9.5-12.4); PLAT.SUFFICIENCY DECREASED; PLATELET COUNT 47 K/uL (156-360)
[2017-01-10 19:48] VITALS: BP 159/103
[2017-01-10 23:55] VITALS: BP 137/89
[2017-01-11 01:37] LABS: ADD MIUA? NO; BILIRUBIN NEGATIVE; BLOOD NEGATIVE; COLOR YELLOW ((YELLOW)); GLUCOSE (STRIP) NEGATIVE; KETONES NEGATIVE; LEUKOCYTES NEGATIVE; NITRITE NEGATIVE; PROTEIN (STRIP) NEGATIVE; SPECIFIC GRAVITY 1.024 (1.000-1.030)
[2017-01-11 03:53] VITALS: BP 157/90
[2017-01-11 06:51] LABS: HEMATOCRIT 23.7 % (36.0-46.0); MCH 31.1 PG (29.0-34.0); MCHC 33.8 G/DL (30.0-36.0); MCV 92.2 FL (83-99); MEAN PLAT.VOLUME 11.6 uM^3 (9.5-12.4); NRBC (%) 24.2 /100 WBC (0-0); PLATELET COUNT 55 K/uL (156-360); RBC DIS.WIDTH-CV 18.6 % (11.8-14.6); RBC DIS.WIDTH-SD 60.7 % (39-53); RED BLOOD COUNT 2.57 M/uL (3.80-5.20)
[2017-01-11 07:10] VITALS: BP 132/88
[2017-01-11 07:30] LABS: ANION GAP 7 MEQ/L (2-14); CHLORIDE 108 MEQ/L (99-109); GFR ESTIMATE (CALCULATED) > 59 mL/min/; GLUCOSE 89 mg/dL (70-99); POTASSIUM 3.2 MEQ/L (3.7-5.4); SAMPLE HEMOLYSIS CHECK 0; SAMPLE ICTERIC CHECK 0; SAMPLE LIPEMIA CHECK 0; SODIUM 141 MEQ/L (136-147); UREA NITROGEN (BUN) 9 mg/dL (9-23)
[2017-01-11 08:41] LABS: HEMATOLOGY COMMENT 1 SMEAR COMPATIBLE; PLAT.SUFFICIENCY DECREASED
[2017-01-11 11:13] VITALS: BP 120/73
[2017-01-11 15:10] VITALS: BP 120/75
[2017-01-11 19:47] VITALS: BP 134/91
[2017-01-11 21:53] LABS: POINT-OF-CARE METER ID UU14100415
[2017-01-12 00:19] VITALS: BP 137/90
[2017-01-12 03:36] VITALS: BP 120/81
[2017-01-12 07:25] VITALS: BP 134/85
[2017-01-12 12:30] VITALS: BP 139/93
[2017-01-12 16:31] VITALS: BP 127/83
[2017-01-12 19:11] VITALS: BP 137/96
[2017-01-13 00:11] VITALS: BP 166/103
[2017-01-13 03:43] VITALS: BP 158/88
[2017-01-13 07:45] VITALS: BP 137/88
[2017-01-13 16:05] VITALS: BP 125/76
== END 2017-01-13 17:27 | disposition hospice, home (50) | DRG 65 ==
LOC: EME → EDBD 19:29 → EME 19:29 → EDOF 22:55 → 5SOUTH 22:55 → ENRESERV 22:56 → 5SOUTH 01-09 01:08
PROVIDERS: Emergency Medicine; Family Medicine
DX: I63.512 Cerebral infarction due to unspecified occlusion or stenosis of left middle cerebral artery (principal); G81.91 Hemiplegia, unspecified affecting right dominant side; R47.01 Aphasia; R47.02 Dysphasia; C79.31 Secondary malignant neoplasm of brain; C79.51 Secondary malignant neoplasm of bone; C80.1 Malignant (primary) neoplasm, unspecified; D61.818 Other pancytopenia; G95.29 Other cord compression; G89.4 Chronic pain syndrome; E66.9 Obesity, unspecified; Z68.38 Body mass index [BMI] 38.0-38.9, adult; R09.02 Hypoxemia; R29.710 NIHSS score 10; Z66 Do not resuscitate; Z51.5 Encounter for palliative care; I10 Essential (primary) hypertension; E78.5 Hyperlipidemia, unspecified; F32.9 Major depressive disorder, single episode, unspecified; Z86.711 Personal history of pulmonary embolism; Z86.718 Personal history of other venous thrombosis and embolism; Z92.21 Personal history of antineoplastic chemotherapy; Z92.3 Personal history of irradiation; Z80.0 Family history of malignant neoplasm of digestive organs
CPT/HCPCS: 70450; 70544; 70549; 70553; 71010; 73552; 80048; 80053; 80061; 81003; 82948; 83036; 85025; 85027; 85610; 85730; 87040; 87086; 92523 GN; 93005; 94799; 97530 GP; 99202; 99281; 99285; J0692; J1170; J1650; J1885; J2543; J3480; J7030; J7050; J8540; Q0164